=== PATIENT | male | born 1960 | race Caucasian/White ===

== ENCOUNTER 2018-03-31 06:42 | Day surgery (SDC) | payer BC, SELFPAY ==
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
[2018-03-31 07:08] VITALS: BP 147/76; PULSE 60; RESP 16; TEMP 37; O2SAT 97; BMI 30.5
[2018-03-31 09:06] LABS: Bedside Glucose 102 mg/dL (70-110)
[2018-03-31] MEDS: Bupiv/Epi 0.5% Mpf 30 ML Vial (09:16)
--- NOTE | 2018-03-31 09:42 | PCM.OPRPT ---
Report of Operation Date of Procedure: 03/31/18 Pre-Operative Diagnosis: Right knee medial meniscus tear. Right knee chondromalacia Post-Operative Diagnosis: Right knee medial meniscus tear. Right knee chondromalacia Surgery/Procedure Performed:: Right knee arthroscopic partial medial meniscus tear. 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 Patient was brought back to the operating room where they were transferred to the bed. Anesthesia assumed control of the C-spine airway and administered anesthetic. All bony prominences were identified and well-padded and the R leg was placed in the arthroscopic leg rodriguez. The contralateral leg was then draped over the bed and well-padded. There was padding underneath both sciatic nerves. The foot of the bed was then dropped and the R leg was prepped in a sterile fashion. The surgeon then scrubbed. Upon reentering the room, the operative leg was draped in a standard orthopedic fashion. A timeout was called, everyone agreed upon the side, the site, the procedure to be performed, patient's identity and antibiotics given. Incisions were marked out for the medial and lateral infrapatellar portals. Esmarch bandage was then used to exsanguinate the leg and tourniquet was placed at 250 mmHg. At this time, the lateral portal incision was made in a vertical fashion. The trocar was placed into the joint. The camera was then placed and the patellofemoral joint was visualized. The patella did appear to have grade 1 chondral changes. The trochlea appeared to have a distal area of grade 3-4 chondral changes. We then directed our attention to the medial gutter where there was no foreign body. Then directed our attention to the medial joint compartment. There were grade 2 chondral changes on the medial distal femur, grade 2-3 chondral changes on the medial tibial plateau. The medial meniscus had a posterior horn tearing. The medial portal was then placed under direct visualization using a spinal needle an 11 blade scalpel. Once this was done a probe was placed in the joint and the meniscus was probed finding complex posterior horn tear. The biters and sheila were then used sequentially to debriding get rid of any free edges that could be a source of pain and catching in the meniscus tear. Once we felt medial meniscus tear was adequately debrided, we again visualized the joint and noted the meniscus tear was adequately debrided. Attention was then turned towards the notch where the anterior cruciate ligament was intact. PCL was visualized and appeared intact. Attention was then directed towards the lateral compartment where the lateral distal femur had grade 1 chondral changes, the lateral proximal tibia had grade 1 chondral changes. The lateral meniscus had no tears. We then directed our attention to the lateral gutter, which was visualized and no free bodies were noted. Again directed our attention back to the patellofemoral compartment where the chondral lesion in the trochlea was debrided of any free flaps and unhealthy tissue shaver performing a chondroplasty at this time the wound was copiously irrigated out with normal saline with epinephrine. The wound was closed with 4-0 nylon and 0.5% Marcaine and epinephrine were injected for local anesthetic. Xeroform was placed over the incision. Sterile dressing was placed. Compressive dressing was placed. Tourniquet was let down. For that there was then placed up. Patient was awakened by anesthesia patient was transferred to the PACU for recovery in stable condition. Postoperative plan: Patient will be made weight-bear as tolerated. Return to activities as tolerated. He will come to the office in 2 weeks for postoperative wound check and suture removal. If he is doing well that time he can follow-up as needed. - Complications No intraoperative complications - Admit VTE Documentation VTE Present on Admission: No VTE Mechan Device Prophylaxis: SCD's, Thigh High MARYANNE Hose VTE Pharm Prophylaxis ordered?: Yes
--- NOTE | 2018-03-31 09:45 | OP.PCM_ITS ---
Report of Operation Date of Procedure: 03/31/18 Pre-Operative Diagnosis: Right knee medial meniscus tear. Right knee alvaro dromalacia Post-Operative Diagnosis: Right knee medial meniscus tear. Right knee chondromalacia Surgery/Procedure Performed:: Right knee arthroscopic partial medial meniscus tear. Right knee arthroscopic chondroplasty Description of Surgical Findings:: See body of operative report policy writer: None Type of Anesthesia:: General Anesthesiologist: Mervin Carlos Special Medications: Cleocin Estimated Blood Loss (mL): 5 Fluids Replaced: 800 mL crystalloid Description of Procedure: On the date of the procedure, the patient's R lower extremity was marked in the preoperative area. Patient was brought back to the operating room where they were transferred to the bed. Anesthesia assumed control of the C-spine airway and administered anesthetic. All bony prominences were identified and well- padded and the R leg was placed in the arthroscopic leg rodriguez. The contralateral leg was then draped over the bed and well-padded. There was padding underneath both sciatic nerves. The foot of the bed was then dropped and the R leg was prepped in a sterile fashion. The surgeon then scrubbed. Upon reentering the room, the operative leg was draped in a standard orthopedic fashion. A timeout was called, everyone agreed upon the side, the site, the procedure to be performed, patient's identity and antibiotics given. Incisions were marked out for the medial and lateral infrapatellar portals. Esmarch bandage was then used to exsanguinate the leg and tourniquet was placed at 250 mmHg. At this time, the lateral portal incision was made in a vertical fashion. The trocar was placed into the joint. The camera was then placed and the patellofemoral joint was visualized. The patella did appear to have grade 1 chondral changes. The trochlea appeared to have a distal area of grade 3-4 chondral changes. We then directed our attention to the medial gutter where there was no foreign body. Then directed our attention to the medial joint c ompartment. There were grade 2 chondral changes on the medial distal femur, grade 2-3 chondral changes on the medial tibial plateau. The medial meniscus had a posterior horn tearing. The medial portal was then placed under direct visualization using a spinal needle an 11 blade scalpel. Once this was done a probe was placed in the joint and the meniscus was probed finding complex posterior horn tear. The biters and sheila were then used sequentially to debriding get rid of any free edges that could be a source of pain and catching in the meniscus tear. Once we felt medial meniscus tear was adequately debrided, we again visualized the joint and noted the meniscus tear was adequately debrided. Attention was then turned towards the notch where the anterior cruciate ligament was intact. PCL was visualized and appeared intact. Attention was then directed towards the lateral compartment where the lateral distal femur had grade 1 chondral changes, the lateral proximal tibia had grade 1 chondral changes. The lateral meniscus had no tears. We then directed our attention to the lateral gutter, which was visualized and no free bodies were noted. Again directed our attention back to the patellofemoral compartment where the chondral lesion in the trochlea was debrided of any free flaps and unhealthy tissue shaver performing a chondroplasty at this time the wound was copiously irrigated out with normal saline with epinephrine. The wound was closed with 4-0 nylon and 0.5% Marcaine and epinephrine were injected for local anesthetic. Xeroform was placed over the incision. Sterile dressing was placed. Compressive dressing was placed. Tourniquet was let down. For that there was then placed up. Patient was awakened by anesthesia patient was transferred to the PACU for recovery in stable condition. Postoperative plan: Patient will be made weight-bear as tolerated. Return to activities as tolerated. He will come to the office in 2 weeks for postoperative wound check and suture removal. If he is doing well that time he can follow-up as needed. - Complications No intraoperative complications - Admit VTE Documentation VTE Present on Admission: No VTE Mechan Device Prophylaxis: SCD's, Thigh High MARYANNE Hose VTE Pharm Prophylaxis ordered?: Yes
[2018-03-31 09:52] VITALS: BP 110/65; BP 147/76; PULSE 61; RESP 18; TEMP 36.2; O2SAT 93
[2018-03-31] MEDS: Ketorolac 30 MG/ML Syringe IV (09:59)
[2018-03-31 10:00] VITALS: BP 127/63; BP 147/76; PULSE 54; RESP 18; O2SAT 93
[2018-03-31] MEDS: Lactated Ringers 1,000 ML 125 ML IV (10:15)
[2018-03-31 10:17] VITALS: BP 128/71; BP 147/76; PULSE 56; RESP 18; TEMP 36.6; O2SAT 94
[2018-03-31 10:26] LABS: Bedside Glucose 105 mg/dL (70-110)
== END 2018-03-31 11:20 | disposition home or self-care (01) ==
LOC: SDC 06:43 → AC 06:44
PROVIDERS: Family Provider Family Medicine; PCP Family Medicine; Referring Provider Specialist; Visit Provider Specialist
PROC: (CPT 29870; principal; 2018-03-31 08:25)
DX: S83.231A Complex tear of medial meniscus, current injury, right knee, initial encounter (principal); W19.XXXA Unspecified fall, initial encounter; M94.261 Chondromalacia, right knee; M17.11 Unilateral primary osteoarthritis, right knee; E78.00 Pure hypercholesterolemia, unspecified; E11.9 Type 2 diabetes mellitus without complications; I10 Essential (primary) hypertension; M54.5 Low back pain; G89.29 Other chronic pain; Z95.1 Presence of aortocoronary bypass graft; Z85.828 Personal history of other malignant neoplasm of skin; Z79.84 Long term (current) use of oral hypoglycemic drugs; Z79.82 Long term (current) use of aspirin; Z79.899 Other long term (current) drug therapy; Z87.891 Personal history of nicotine dependence
CPT/HCPCS: 01400; 29881; G0289; 82962; J7120

== ENCOUNTER → 2023-01-14 | Outpatient (CLI) | payer BC, SELFPAY ==
[2023-01-14 10:02] LABS: Absolute Lymphocyte Count 2.26 X10^3/uL (0.83-4.51); Absolute Neutrophil Count 6.1 X10^3/uL (2.0-7.7); Basophil# 0.13 X10^3/uL; Basophil% 1.3 % (0-1); Eosinophil# 0.33 X10^3/uL; Eosinophils% 3.3 % (0-5); Hematocrit 41.6 % (40-54); Hemoglobin 14.1 g/dL (13.0-16.5); Lymphocyte # 2.26 X10^3/ul (0.83-4.51); Lymphocyte % 22.6 % (19-41); Mean Corp Hgb Conc 33.9 g/dL (32-36); Mean Corpuscular Hgb 31.7 pg (27.0-32.0); Mean Corpuscular Volume 93.5 fL (80-94); Mean Platelet Vol. 10.4 fl (6.2-12.0); Monocyte# 1.14 X10^3/uL; Monocyte% 11.4 % (0-10); NRBC Flagged by Analyzer 0 % (0-5); Neutrophil # 6.09 X10^3/uL (2.7-7.7); Platelet Count 225 K/mm3 (150-450); RBC Distribution Width CV 12.7 % (11.6-14.6); RBC Distribution Width SD 43.1 fl (35.1-43.9); Red Blood Count 4.45 M/mm3 (4.6-6.2)
== END | disposition home or self-care (01) ==
LOC: LAB 09:12
PROVIDERS: Referring Provider Orthopaedic Surgery; Visit Provider Orthopaedic Surgery
DX: Z01.812 Encounter for preprocedural laboratory examination (principal)
CPT/HCPCS: 36415; 85025